=== PATIENT | male | born 1965 | race Caucasian/White ===

== ENCOUNTER 2018-06-20 12:34 | Inpatient (IN) | payer OTHER, MEDICAID ==
[~2018-06-20] VITALS: Ht 172.7 cm; Wt 72.6 kg
[2018-06-20 19:05] LABS: BASOPHILS % 1.1 % (0.0-2.0); EOSINOPHILS % 3.5 % (0.0-5.0); HEMATOCRIT. 39.7 % (42.0-52.0); HEMOGLOBIN. 13.5 g/dL (14.0-18.0); LYMPHOCYTES % 36.8 % (20.0-50.0); MEAN CORPUSCULAR HEMOGLOBIN 32.6 pg (28.0-32.0); MEAN CORPUSCULAR VOLUME 95.8 fL (80.0-94.0); MEAN PLATELET VOLUME 7.2 fl (7.4-10.4); MONOCYTES % 6.5 % (2.0-8.0); NEUTROPHILS % 52.1 % (40.0-76.0); PLATELET 311 x1000/uL (130-400); RED BLOOD CELL COUNT 4.15 mill/uL (4.7-6.1); RED CELL DISTRIBUTION WIDTH 12.6 % (11.6-14.6)
[2018-06-20 19:09] LABS: CHLORIDE 103 mEq/L (98-107)
[2018-06-20] MEDS ORDERED: ASPIRIN 325MG EC TABLET PO ONE (19:45)
[2018-06-20] MEDS ORDERED: MORPHINE SULFATE 4 MG/ML CPJ (NOT FOR IM USE) IV ONE (20:00)
[2018-06-20] MEDS ORDERED: CLONIDINE 0.1MG TABLET PO PRN (21:15)
[2018-06-20] MEDS ORDERED: HYDROCODONE/ACETAMINOPHEN 5/325MG TABLET PO PRN (21:15)
[2018-06-20] MEDS ORDERED: ONDANSETRON HCL 4MG/2ML INJ IV PRN (21:15)
[2018-06-20] MEDS ORDERED: MAGNESIUM/ALUMINUM HYDROXIDE/SIMETHICONE 30ML UDC PO PRN (21:15)
[2018-06-20] MEDS ORDERED: ACETAMINOPHEN 325MG TABLET PO PRN (21:15)
[2018-06-20] MEDS ORDERED: DOCUSATE SODIUM 100MG CAPSULE PO PRN (21:15)
[2018-06-20 23:30] VITALS: BP 119/80
[2018-06-20 23:45] VITALS: BP 119/80
[2018-06-21] MEDS: MORPHINE SULFATE 4 MG/ML CPJ (NOT FOR IM USE) IV PRN ×3 (00:44→20:15)
[2018-06-21 00:56] LABS: CREATINE KINASE 121 IU/L (39-308)
[2018-06-21 00:57] LABS: CREATINE KINASE MB FRACTION 1.8 ng/mL (0.5-3.6)
[2018-06-21 04:00] VITALS: BP 127/91
[2018-06-21 05:56] LABS: BASOPHILS % 0.7 % (0.0-2.0); EOSINOPHILS % 3.9 % (0.0-5.0); HEMATOCRIT. 39.1 % (42.0-52.0); HEMOGLOBIN. 13.3 g/dL (14.0-18.0); MEAN CORPUSCULAR HEMOGLOBIN 32.8 pg (28.0-32.0); MEAN CORPUSCULAR VOLUME 96.3 fL (80.0-94.0); MONOCYTES % 7.6 % (2.0-8.0); NEUTROPHILS % 54.8 % (40.0-76.0); PLATELET 302 x1000/uL (130-400); RED BLOOD CELL COUNT 4.06 mill/uL (4.7-6.1); RED CELL DISTRIBUTION WIDTH 12.5 % (11.6-14.6)
[2018-06-21 06:34] LABS: CHLORIDE 103 mEq/L (98-107)
[2018-06-21 06:49] LABS: LDL CHOLESTEROL 98 mg/dL (5-100)
[2018-06-21 06:50] LABS: CREATINE KINASE 117 IU/L (39-308); HDL CHOLESTEROL 44 mg/dL (40-59)
[2018-06-21 08:00] VITALS: BP 126/84
[2018-06-21] MEDS ORDERED: REGADENOSON 0.4 MG/5 ML IV ONE ×2 (08:45→10:30)
[2018-06-21] MEDS ORDERED: ASPIRIN 81MG EC TABLET PO SCH (09:00)
[2018-06-21] MEDS ORDERED: POTASSIUM CHLORIDE 20MEQ TABLET SR PO NR (10:15)
[2018-06-21 10:57] LABS: T4 FREE 1.02 ng/dL (0.76-1.46)
[2018-06-21 12:00] VITALS: BP 111/76
[2018-06-21] MEDS ORDERED: INFLUENZA VIRUS VACCINE(AFLURIA) 0.5ML SYR IM ONE (12:00)
[2018-06-21] MEDS: AMLODIPINE 10MG TABLET PO SCH (12:45)
[2018-06-21 16:00] VITALS: BP 104/69
[2018-06-21 16:42] LABS: CREATINE KINASE 108 IU/L (39-308)
[2018-06-21 16:43] LABS: CREATINE KINASE MB FRACTION 1.7 ng/mL (0.5-3.6)
[2018-06-21 20:00] VITALS: BP 109/73
[2018-06-21 23:25] VITALS: BP 113/72
[2018-06-22 01:03] LABS: CREATINE KINASE 98 IU/L (39-308)
[2018-06-22 01:08] LABS: CREATINE KINASE MB FRACTION 1.3 ng/mL (0.5-3.6)
[2018-06-22 04:00] VITALS: BP 119/75
[2018-06-22 07:57] LABS: *AMPHETAMINES SCREEN URINE NEGATIVE (NEGATIVE); *BARBITURATES SCREEN URINE NEGATIVE (NEGATIVE); *BENZODIAZEPINES SCREEN URINE NEGATIVE (NEGATIVE)
[2018-06-22 07:58] LABS: *COCAINE SCREEN URINE NEGATIVE (NEGATIVE); CANNABINOID URINE SCREEN NEGATIVE (NEGATIVE); METHADONE URINE SCREEN NEGATIVE (NEGATIVE); OPIATES URINE SCREEN PRESUMTIVE POSITIVE (NEGATIVE); PHENCYCLIDINE URINE SCREEN NEGATIVE (NEGATIVE)
[2018-06-22 08:00] VITALS: BP 110/76
[2018-06-22] MEDS: AMLODIPINE 10MG TABLET PO SCH (09:00)
[2018-06-22] MEDS ORDERED: ASPIRIN 81MG TABLET PO SCH (09:00)
[2018-06-22 11:43] VITALS: BP 110/76
[2018-06-22 12:00] VITALS: BP 105/63
[2018-06-22 12:15] VITALS: BP 105/63
[2018-06-22 13:19] LABS: CREATINE KINASE 89 IU/L (39-308)
[2018-06-22 13:20] LABS: CREATINE KINASE MB FRACTION < 1.0 ng/mL (0.5-3.6)
== END 2018-06-22 13:52 | disposition home or self-care (01) | DRG 203 ==
LOC: ER 12:34 → EDBEDREQ 19:55 → EDBEDREQTM 19:55 → SUPCPDRO 21:08 → ENRESERV 22:12 → 7WST 23:41
PROVIDERS: ADMIT Hospitalist; ATTEND Hospitalist
DX: R07.89 Other chest pain (principal); M25.512 Pain in left shoulder; R94.31 Abnormal electrocardiogram [ECG] [EKG]
CPT/HCPCS: 36415; 71045; 78452; 80061; 80305; 82550; 82553; 83036; 83880; 84439; 84443; 84484; 85379; 90686; 93005; 93017; 93306; 93970; 96374; 99285; A9500; J2270; J2785